=== PATIENT | female | born 1985 | race Caucasian/White ===

== ENCOUNTER → 2017-03-10 | Outpatient (CLI) | payer OTHER ==
--- NOTE | 2017-03-11 01:05 | REP ---
Clinical: Pain. Technique: AP, lateral, bilateral oblique views left foot . Findings: The osseous structures and joint spaces are intact and normal. There is no evidence for acute fracture or dislocation. Surrounding soft tissues are unremarkable. No subcutaneous emphysema or radiodense foreign body. Impression: Normal examination. No acute fracture or dislocation. Signed by Jerardo Elliott MD 03/11/2017 12:56 A
== END ==
LOC: M WUC 18:27
PROVIDERS: ATTEND Physician Assistant
DX: M79.672 Pain in left foot (principal)

== ENCOUNTER 2017-04-03 20:25 | Emergency (ER) | payer OTHER ==
[~2017-04-03] VITALS: Ht 162.6 cm; Wt 90.5 kg
[2017-04-03] MEDS ORDERED: TRINTAB3 (20:33)
[2017-04-03] MEDS ORDERED: RANITAB PO (20:34)
[2017-04-03] MEDS ORDERED: ONDANSETRON 4MG/2ML VIAL (J2405) IV ONE (23:00)
[2017-04-03] MEDS ORDERED: diphenhydrAMINE INJ 50MG/ML VIAL (J1200) IV ONE (23:00)
[2017-04-03] MEDS ORDERED: SUCRALFATE 1 GM TAB PO ONE (23:00)
[2017-04-03] MEDS ORDERED: NS 1,000 ML IV ONE (23:00)
[2017-04-03] MEDS ORDERED: GI COCKTAIL 50ML BTL(HYOSCYAMINE/MAALOX/LIDOCAINE VISCOUS)(1:3:1) PO ONE (23:00)
[2017-04-03 23:14] LABS: BASO % 0.2 % (0.0-1.0); EOS # 0.1 K/mm3 (0.0-0.50); EOS % 1.2 % (0.0-3.0); LARGE UNSTAINED CELL # 0.1 K/mm3 (0.0-0.4); LARGE UNSTAINED CELL % 0.5 % (0.0-4.0); LYMPH # 0.6 K/mm3 (1.5-4.5); LYMPH % 6.3 % (24.0-44.0); MEAN CORPUSCULAR HEMOGLOBIN 30.3 pg (27.0-33.0); MEAN CORPUSCULAR HGB CONC 32.4 g/dl (32.0-36.5); MEAN CORPUSCULAR VOLUME 93.5 fl (80.0-96.0); MONO # 0.2 K/mm3 (0.0-0.8); MONO % 2.3 % (0.0-5.0); NEUTROPHILS # 8.2 K/mm3 (1.8-7.7); NEUTROPHILS % 89.4 % (36.0-66.0); PLATELET COUNT, AUTOMATED 280 k/mm3 (150-450); WHITE BLOOD COUNT 9.2 K/mm3 (4.0-10.0)
[2017-04-03 23:17] LABS: ALBUMIN 3.8 GM/DL (3.2-5.2); ALBUMIN/GLOBULIN RATIO 1.03 (1.00-1.93); ALKALINE PHOSPHATASE 36 U/L (45-117); ALT/SGPT 16 U/L (12-78); ANION GAP 5 MEQ/L (8-16); AST/SGOT 12 U/L (15-37); BILIRUBIN,DIRECT 0.2 MG/DL (0.0-0.2); BILIRUBIN,TOTAL 0.9 MG/DL (0.2-1.0); BLOOD UREA NITROGEN 9 MG/DL (7-18); CALCIUM LEVEL 9.1 MG/DL (8.5-10.1); CARBON DIOXIDE LEVEL 27 MEQ/L (21-32); CHLORIDE LEVEL 103 MEQ/L (98-107); CREATININE FOR GFR 0.68 MG/DL (0.55-1.02); GLOMERULAR FILTRATION RATE > 60.0 (>60); GLUCOSE, FASTING 88 MG/DL (70-105); POTASSIUM SERUM 3.8 MEQ/L (3.5-5.1); SODIUM LEVEL 135 MEQ/L (136-145); TOTAL PROTEIN 7.5 GM/DL (6.4-8.2)
[2017-04-03 23:58] VITALS: BP 129/70
[2017-04-04] MEDS ORDERED: ZOFR4TAB3 PO (00:14)
[2017-04-04] MEDS ORDERED: LIDO1SOL7 PO (00:14)
== END 2017-04-04 00:27 | disposition home or self-care (01) ==
LOC: M ED 20:25
DX: K29.00 Acute gastritis without bleeding (principal); K21.9 Gastro-esophageal reflux disease without esophagitis; Z87.891 Personal history of nicotine dependence

== ENCOUNTER → 2018-03-29 | Outpatient (REF) | payer OTHER, SELFPAY ==
[2018-04-02 00:14] LABS: HSV-1 DNA Negative (Negative); HSV-2 DNA Negative (Negative)
== END ==
LOC: M SFHCCAPE 15:13
DX: L98.9 Disorder of the skin and subcutaneous tissue, unspecified (principal)
CPT/HCPCS: 87529

== ENCOUNTER 2018-09-24 18:48 | Emergency (ER) | payer OTHER, MEDICAID ==
[~2018-09-24] VITALS: Ht 162.6 cm; Wt 72.7 kg
[~2018-09-24 18:48] MED LIST: LIDO1SOL7 PO; RANITAB PO; TRINTAB; ZOFR4TAB14 PO
[2018-09-24] MEDS ORDERED: LEVOTAB18 (19:06)
[2018-09-24] MEDS ORDERED: METR0.7533 TOP (19:06)
[2018-09-24] MEDS ORDERED: MINO0.1C PO (19:06)
[2018-09-24 20:09] LABS: BASO % 0.2 % (0.0-1.0); EOS % 0.2 % (0.0-3.0); HEMATOCRIT 42.5 % (36.0-47.0); HEMOGLOBIN 14.3 g/dl (12.0-15.5); LYMPH # 0.8 10^3/uL (1.5-4.5); LYMPH % 14.4 % (24.0-44.0); MEAN CORPUSCULAR HEMOGLOBIN 32.1 pg (27.0-33.0); MEAN CORPUSCULAR HGB CONC 33.6 g/dl (32.0-36.5); MEAN CORPUSCULAR VOLUME 95.3 fl (80.0-96.0); MONO # 0.4 10^3/uL (0.0-0.8); MONO % 6.9 % (0.0-5.0); NEUTROPHILS # 4.1 10^3/uL (1.8-7.7); NEUTROPHILS % 78.1 % (36.0-66.0); PLATELET COUNT, AUTOMATED 225 10^3/uL (150-450); RED BLOOD COUNT 4.46 10^6/uL (4.00-5.40); WHITE BLOOD COUNT 5.2 10^3/uL (4.0-10.0)
[2018-09-24] MEDS ORDERED: PANTOPRAZOLE 40MG INJ (PROTONIX) (C9113) IV ONE (20:15)
[2018-09-24] MEDS ORDERED: METOCLOPRAMIDE INJ 10MG/2ML VIAL (J2765) IV ONE (20:15)
[2018-09-24 20:32] LABS: ALBUMIN 3.4 GM/DL (3.2-5.2); ALT/SGPT 34 U/L (12-78); AMYLASE 22 U/L (25-115); BILIRUBIN,DIRECT 0.3 MG/DL (0.0-0.2); BLOOD UREA NITROGEN 6 MG/DL (7-18); CALCIUM LEVEL 8.5 MG/DL (8.5-10.1); CARBON DIOXIDE LEVEL 22 MEQ/L (21-32); CHLORIDE LEVEL 109 MEQ/L (98-107); CREATININE FOR GFR 0.65 MG/DL (0.55-1.30); GLOMERULAR FILTRATION RATE > 60.0 (>60); GLUCOSE, FASTING 79 MG/DL (70-100); HCG, SERUM QUALITATIVE NEGATIVE (NEGATIVE); LIPASE 71 U/L (73-393); POTASSIUM SERUM 3.9 MEQ/L (3.5-5.1); SODIUM LEVEL 140 MEQ/L (136-145); TOTAL PROTEIN 6.7 GM/DL (6.4-8.2)
[2018-09-24] MEDS ORDERED: ZOFR4TAB14 PO (21:11)
[2018-09-24] MEDS ORDERED: LIDO1SOL7 PO (21:11)
[2018-09-24] MEDS ORDERED: PROT1TAB2 PO (21:11)
[2018-09-24 21:25] VITALS: BP 115/70
[2018-09-24] MEDS ORDERED: GI COCKTAIL 50ML BTL(HYOSCYAMINE/MAALOX/LIDOCAINE VISCOUS)(1:3:1) PO ONE (21:45)
== END 2018-09-24 21:49 | disposition home or self-care (01) ==
LOC: M ED 18:48
DX: K29.00 Acute gastritis without bleeding (principal); K27.9 Peptic ulcer, site unspecified, unspecified as acute or chronic, without hemorrhage or perforation; Z88.8 Allergy status to other drugs, medicaments and biological substances; Z79.899 Other long term (current) drug therapy
CPT/HCPCS: 36415; 80048; 80076; 81001; 82150; 83690; 84703; 85025; 96374; 96375; 99284; C9113; J2765

== ENCOUNTER → 2018-11-26 | Outpatient (CLI) | payer OTHER, MEDICAID ==
[~2018-11-26] MED LIST changes: +LEVOTAB18; +METR0.7533 TOP; +MINO0.1C PO; +PROT1TAB2 PO
[2018-11-26 18:45] LABS: BASO % 0.6 % (0.0-1.0); EOS % 0.3 % (0.0-3.0); HEMATOCRIT 42.1 % (36.0-47.0); HEMOGLOBIN 13.8 g/dl (12.0-15.5); LYMPH # 1.6 10^3/uL (1.5-4.5); LYMPH % 22.2 % (24.0-44.0); MEAN CORPUSCULAR HEMOGLOBIN 31.5 pg (27.0-33.0); MEAN CORPUSCULAR HGB CONC 32.8 g/dl (32.0-36.5); MEAN CORPUSCULAR VOLUME 96.1 fl (80.0-96.0); MONO # 0.5 10^3/uL (0.0-0.8); MONO % 7.2 % (0.0-5.0); NEUTROPHILS % 69.3 % (36.0-66.0); PLATELET COUNT, AUTOMATED 261 10^3/uL (150-450); RED BLOOD COUNT 4.38 10^6/uL (4.00-5.40); WHITE BLOOD COUNT 7.2 10^3/uL (4.0-10.0)
[2018-11-26 19:09] LABS: ALBUMIN 4.1 GM/DL (3.2-5.2); ALT/SGPT 33 U/L (12-78); BILIRUBIN,TOTAL 1.7 MG/DL (0.2-1.0); BLOOD UREA NITROGEN 9 MG/DL (7-18); CALCIUM LEVEL 8.7 MG/DL (8.5-10.1); CARBON DIOXIDE LEVEL 23 MEQ/L (21-32); CHLORIDE LEVEL 106 MEQ/L (98-107); CHOLESTEROL LEVEL 196 MG/DL (<200); CHOLESTEROL RISK RATIO 2.882 (<5); CREATININE FOR GFR 0.72 MG/DL (0.55-1.30); FREE T4 1.34 NG/DL (0.76-1.46); GLOMERULAR FILTRATION RATE > 60.0 (>60); GLUCOSE, FASTING 62 MG/DL (70-100); HDL CHOLESTEROL 68 MG/DL (>40); LDL CHOLESTEROL 114 MG/DL (<100); NON-HDL-C 128 MG/DL; POTASSIUM SERUM 4.4 MEQ/L (3.5-5.1); SODIUM LEVEL 140 MEQ/L (136-145); TOTAL PROTEIN 7.5 GM/DL (6.4-8.2); TRIGLYCERIDES LEVEL 69 MG/DL (<150)
[2018-11-29 14:48] LABS: TISSUE TRANSGLUTAMINASE IgA <2 U/mL (0-3); TISSUE TRANSGLUTAMINASE IgG <2 U/mL (0-5)
== END ==
LOC: M WUC 16:26
PROVIDERS: ATTEND Physician Assistant
DX: K21.0 Gastro-esophageal reflux disease with esophagitis (principal); Z13.29 Encounter for screening for other suspected endocrine disorder

== ENCOUNTER → 2019-04-05 | Outpatient (CLI) | payer OTHER, MEDICAID ==
[~2019-04-05] MED LIST changes: -LIDO1SOL7 PO; +LIDO1SOL8 PO
--- NOTE | 2019-04-06 07:22 | REP ---
REASON FOR EXAM: Knee pain. COMPARISON: Preoperative examination of 04/13/2003. Sometime in 2002 after that prior MRI examination, the patient underwent ACL reconstruction. I have no operative report to review. There is magnetic susceptibility artifact seen in the distal femur and proximal tibia from previous ACL reconstruction. Mature tunnel defects are seen, one in the distal femur and the other in the proximal tibia. The reconstructed anterior cruciate ligament is intact. The posterior cruciate ligament is intact. The anterior and posterior horns of the lateral meniscus are within normal limits. Slight grade 2 signal changes are seen in the posterior horn. The anterior and posterior horns of the medial meniscus are within normal limits. The quadriceps and patellar tendons are intact. The medial and lateral collateral ligaments are intact. The medial and lateral patellar tenacula are intact. There is blistering involving the patellar articular cartilage particularly over the lateral facet. This represents a change from the prior exam. There is a slight joint effusion. The medial and lateral compartmental articular cartilages appear to be within normal limits. There is a tiny amount of fluid seen between the tendons of the medial head of the gastrocnemius muscle and the semimembranosus muscle. Aside from the magnetic susceptibility artifact, the marrow signal is unremarkable. IMPRESSION: 1. The reconstructed anterior cruciate ligament is intact. 2. There is no evidence of acute internal derangement. 3. 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 4. There is a minimal joint effusion. Electronically Signed by Donny Molina DO 04/06/2019 10:19 A
== END ==
LOC: M RAD 16:14
PROVIDERS: ATTEND Orthopaedic Surgery Sports Medicine
DX: M25.561 Pain in right knee (principal)

== ENCOUNTER → 2019-08-30 | Outpatient (CLI) | payer OTHER ==
[2019-08-30 13:09] LABS: HEMATOCRIT 40.5 % (36.0-47.0); HEMOGLOBIN 12.7 g/dl (12.0-15.5); MEAN CORPUSCULAR HEMOGLOBIN 30.8 pg (27.0-33.0); MEAN CORPUSCULAR HGB CONC 31.4 g/dl (32.0-36.5); MEAN CORPUSCULAR VOLUME 98.3 fl (80.0-96.0); PLATELET COUNT, AUTOMATED 297 10^3/uL (150-450); RED BLOOD COUNT 4.12 10^6/uL (4.00-5.40); WHITE BLOOD COUNT 7.4 10^3/uL (4.0-10.0)
[2019-08-30 16:56] LABS: BLOOD UREA NITROGEN 7 MG/DL (7-18); CARBON DIOXIDE LEVEL 25 MEQ/L (21-32); CHLORIDE LEVEL 108 MEQ/L (98-107); CREATININE FOR GFR 0.69 MG/DL (0.55-1.30); GLOMERULAR FILTRATION RATE > 60.0 (>60); GLUCOSE, FASTING 85 MG/DL (70-100); SODIUM LEVEL 140 MEQ/L (136-145)
[2019-08-30 16:57] LABS: CALCIUM LEVEL 8.9 MG/DL (8.5-10.1)
== END ==
LOC: M LAB 11:45
PROVIDERS: ATTEND Plastic Surgery Surgery of the Hand
DX: N62 Hypertrophy of breast (principal)

== ENCOUNTER 2019-09-06 05:07 | Emergency (ER) | payer OTHER ==
[~2019-09-06] VITALS: Ht 162.6 cm; Wt 77.3 kg
[2019-09-06 05:08] VITALS: BP 144/87
[2019-09-06] MEDS ORDERED: BENA25CA4 PO (05:16)
[2019-09-06 05:55] LABS: BASO % 0.4 % (0.0-1.0); EOS % 0.2 % (0.0-3.0); HEMATOCRIT 41.9 % (36.0-47.0); HEMOGLOBIN 13.4 g/dl (12.0-15.5); LYMPH # 1.2 10^3/uL (1.5-5.0); LYMPH % 11.1 % (24.0-44.0); MEAN CORPUSCULAR HEMOGLOBIN 30.8 pg (27.0-33.0); MEAN CORPUSCULAR VOLUME 96.3 fl (80.0-96.0); MONO # 0.6 10^3/uL (0.0-0.8); MONO % 5.9 % (0.0-5.0); NEUTROPHILS # 8.7 10^3/uL (1.5-8.5); PLATELET COUNT, AUTOMATED 254 10^3/uL (150-450); RED BLOOD COUNT 4.35 10^6/uL (4.00-5.40); WHITE BLOOD COUNT 10.6 10^3/uL (4.0-10.0)
[2019-09-06] MEDS ORDERED: predniSONE 20 MG TAB As Ordered ONE (06:08)
[2019-09-06] MEDS ORDERED: FAMOTIDINE 20 MG TAB As Ordered ONE (06:08)
[2019-09-06] MEDS ORDERED: predniSONE 20 MG TAB PO ONE (06:15)
[2019-09-06] MEDS ORDERED: FAMOTIDINE 20 MG TAB PO ONE (06:15)
[2019-09-06 06:22] LABS: BLOOD UREA NITROGEN 5 MG/DL (7-18); CALCIUM LEVEL 9.1 MG/DL (8.5-10.1); CARBON DIOXIDE LEVEL 27 MEQ/L (21-32); CHLORIDE LEVEL 107 MEQ/L (98-107); CREATININE FOR GFR 0.88 MG/DL (0.55-1.30); GLOMERULAR FILTRATION RATE > 60.0 (>60); GLUCOSE, FASTING 86 MG/DL (70-100); POTASSIUM SERUM 4.4 MEQ/L (3.5-5.1); SODIUM LEVEL 141 MEQ/L (136-145)
[2019-09-06] MEDS ORDERED: MEDR4TAB PO (06:41)
[2019-09-06] MEDS ORDERED: AMOX500C PO (06:41)
[2019-09-06] MEDS ORDERED: PRED5SOL10 PO (06:53)
[2019-09-06] MEDS ORDERED: AMOX40SS PO (06:53)
== END 2019-09-06 06:56 | disposition home or self-care (01) ==
LOC: M ED 05:07
DX: L50.9 Urticaria, unspecified (principal); J02.0 Streptococcal pharyngitis; F12.90 Cannabis use, unspecified, uncomplicated

== ENCOUNTER → 2019-12-04 | Outpatient (REF) | payer OTHER ==
[~2019-12-04] MED LIST changes: +AMOX40SS PO; +AMOX500C PO; +BENA25CA4 PO; +CEFD125SUS PO; +CELE10TA PO; +CETI10CH PO; +FLON1SPR; -LIDO1SOL8 PO; +LIDO2SOL17 PO; +MEDR4TAB PO; +ONDA4TAB6 PO; +PANT20TA2 PO; +PRED5SOL10 PO; +PROAAER10 INH; +SEASTAB PO; +XANA0.25 PO
== END ==
LOC: M LAB REF 17:21
PROVIDERS: ATTEND Physician Assistant
DX: J02.9 Acute pharyngitis, unspecified (principal)

== ENCOUNTER → 2020-04-23 | Outpatient (CLI) | payer OTHER ==
[~2020-04-23] MED LIST changes: -PANT20TA2 PO; +PANT20TA6 PO
[2020-05-20 20:28] LABS: BASO % 0.6 % (0.0-1.0); EOS % 0.4 % (0.0-3.0); HEMATOCRIT 41.1 % (36.0-47.0); HEMOGLOBIN 13.3 g/dl (12.0-15.5); LYMPH # 1.5 10^3/uL (1.5-5.0); LYMPH % 29.8 % (24.0-44.0); MEAN CORPUSCULAR HEMOGLOBIN 31.4 pg (27.0-33.0); MEAN CORPUSCULAR HGB CONC 32.4 g/dl (32.0-36.5); MEAN CORPUSCULAR VOLUME 96.9 fl (80.0-96.0); MONO # 0.3 10^3/uL (0.0-0.8); MONO % 6.7 % (0.0-5.0); NEUTROPHILS # 3.2 10^3/uL (1.5-8.5); NEUTROPHILS % 62.3 % (36.0-66.0); PLATELET COUNT, AUTOMATED 301 10^3/uL (150-450); RED BLOOD COUNT 4.24 10^6/uL (4.00-5.40); WHITE BLOOD COUNT 5.1 10^3/uL (4.0-10.0)
[2020-06-22 11:24] LABS: HEMOGLOBIN A1c 4.9 %
[2020-07-09 11:27] LABS: GLUCOSE, FASTING SEE SEPARATE REPORT
== END ==
LOC: M LAB 12:10
PROVIDERS: ATTEND Physician Assistant
DX: Z13.29 Encounter for screening for other suspected endocrine disorder (principal)

== ENCOUNTER → 2020-09-28 | Outpatient (CLI) | payer SELFPAY | LOC: M LABSMTC 11:57 | PROVIDERS: ATTEND Pediatrics | DX: Z20.822 Contact with and (suspected) exposure to COVID-19 (principal) ==

== ENCOUNTER → 2021-03-20 | Outpatient (CLI) | payer OTHER ==
--- NOTE | 2021-03-20 11:42 | DEXAMM ---
INDICATION: Z13.820 SCREENING FOR OSTEOPOROSIS. COMPARISON: None. TECHNIQUE: Bone density was measured using dual-energy x-ray absorptionmetry (DEXA). FINDINGS: AP SPINE L1-L4 BMD 1.073 g/cm2 Young Adult T-Score -1.0 Age Matched Z-Score -1.0. LT FEMUR, TOTAL BMD 0.956 g/cm2 Young Adult T-Score -0.4 Age Matched Z-Score -0.3. LT NECK BMD 0.951 g/cm2 Young Adult T-Score -0.6 Age Matched Z-Score -0.3. RT FEMUR, TOTAL BMD 0.941 g/cm2 Young Adult T-Score -0.5 Age Matched Z-Score -0.4. RT NECK BMD 0.915 g/cm2 Young Adult T-Score -0.9 Age Matched Z-Score -0.6. IMPRESSION: There is low bone density of the spine. There is normal bone density of the left hip. There is normal bone density of the right hip. FOLLOW-UP: Recommendation for the next bone density exam: 2 years. <Electronically signed by Santi Frausto > 03/20/21 1139
== END ==
LOC: M WHC 10:34
PROVIDERS: ATTEND Physician Assistant
DX: Z13.820 Encounter for screening for osteoporosis (principal); M85.88 Other specified disorders of bone density and structure, other site

== ENCOUNTER → 2021-06-25 | Outpatient (REF) | payer OTHER | LOC: M LAB REF 17:23 | PROVIDERS: ATTEND Physician Assistant | DX: J02.9 Acute pharyngitis, unspecified (principal) ==

== ENCOUNTER → 2022-03-07 | Outpatient (CLI) | payer BC, OTHER, MEDICAID ==
[2022-03-07 13:15] LABS: BASO % 0.6 % (0.0-1.0); EOS % 0.6 % (0.0-3.0); HEMATOCRIT 41.4 % (36.0-47.0); HEMOGLOBIN 13.7 g/dl (12.0-15.5); LYMPH # 1.7 10^3/uL (1.5-5.0); MEAN CORPUSCULAR HEMOGLOBIN 32.3 pg (27.0-33.0); MEAN CORPUSCULAR HGB CONC 33.1 g/dl (32.0-36.5); MEAN CORPUSCULAR VOLUME 97.6 fl (80.0-96.0); MONO # 0.5 10^3/uL (0.0-0.8); MONO % 7.7 % (2.0-8.0); NEUTROPHILS # 4.3 10^3/uL (1.5-8.5); NEUTROPHILS % 64.8 % (36.0-66.0); PLATELET COUNT, AUTOMATED 315 10^3/uL (150-450); RED BLOOD COUNT 4.24 10^6/uL (4.00-5.40); WHITE BLOOD COUNT 6.7 10^3/uL (4.0-10.0)
[2022-03-07 13:49] LABS: ALT/SGPT 16 U/L (12-78); BILIRUBIN,TOTAL 1.1 MG/DL (0.2-1.0); BLOOD UREA NITROGEN 7 MG/DL (7-18); CALCIUM LEVEL 9.8 MG/DL (8.5-10.1); CARBON DIOXIDE LEVEL 30 MEQ/L (21-32); CHLORIDE LEVEL 109 MEQ/L (98-107); CHOLESTEROL LEVEL 180 MG/DL (<200); CHOLESTEROL RISK RATIO 1.894 (<5); FREE T4 1.08 NG/DL (0.76-1.46); GLOMERULAR FILTRATION RATE > 60.0 (>60); GLUCOSE, FASTING 91 MG/DL (70-100); HDL CHOLESTEROL 95 MG/DL (>40); LDL CHOLESTEROL 74 MG/DL (<100); NON-HDL-C 85 MG/DL; POTASSIUM SERUM 4.5 MEQ/L (3.5-5.1); SODIUM LEVEL 144 MEQ/L (136-145); TRIGLYCERIDES LEVEL 57 MG/DL (<150)
[2022-03-09 09:11] LABS: FOLLICLE STIMULATING HORMONE 8.2 mIU/mL; LUTEINIZING HORMONE 16.3 mIU/mL; TOTAL 25(OH) VITAMIN D 23.1 NG/ML (30.0-100.0)
[2022-03-10 18:09] LABS: TESTOSTERONE FREE (DIRECT) 2.3 pg/mL (0.0-4.2)
== END ==
LOC: M LAB 12:48
PROVIDERS: ATTEND Physician Assistant
DX: Z13.220 Encounter for screening for lipoid disorders (principal); Z13.29 Encounter for screening for other suspected endocrine disorder